=== PATIENT | female | born 1975 | race African-American/Black ===

== ENCOUNTER → 2018-01-20 | Outpatient (CLI) | payer OTHER | LOC: CAT 13:23 | DX: H05.011 Cellulitis of right orbit (principal) ==

== ENCOUNTER 2018-12-09 11:19 | Emergency (ER) | payer OTHER ==
[~2018-12-09] VITALS: Ht 157.5 cm; Wt 95.7 kg
[2018-12-09] MEDS ORDERED: LISINOPRIL20 MG PO (11:28)
[2018-12-09] MEDS ORDERED: HYDROCHLOROTHIA25 M2 PO (11:29)
[2018-12-09] MEDS ORDERED: XANAX1 MG PO (11:29)
[2018-12-09] MEDS ORDERED: IBUPROFEN 600600 M1 PO (12:54)
[2018-12-09 13:55] VITALS: BP 134/78
== END 2018-12-09 13:55 | disposition home or self-care (01) ==
LOC: ER 11:19
DX: S43.492A Other sprain of left shoulder joint, initial encounter (principal); S13.8XXA Sprain of joints and ligaments of other parts of neck, initial encounter; I10 Essential (primary) hypertension; F17.210 Nicotine dependence, cigarettes, uncomplicated; Z88.6 Allergy status to analgesic agent; Z88.8 Allergy status to other drugs, medicaments and biological substances; W06.XXXA Fall from bed, initial encounter; Y93.89 Activity, other specified; Y92.89 Other specified places as the place of occurrence of the external cause; Y99.8 Other external cause status